=== PATIENT | male | born 1995 | race Caucasian/White ===

== ENCOUNTER 2017-06-24 10:06 | Outpatient (CLI) | payer OTHER ==
--- NOTE | 2017-06-24 15:16 | Diagnostic Imaging Report ---
MISSY PARKS (PHLEBOTOMY DIRECTOR) - OP [facility] [id number] [facility].[address] [id number] Report Submission Date: Jun 24, 2017 10:32:27 AM CDT Patient Study Name: MINDY SALINAS Date: Jun 24, 2017 10:19:55 AM CDT Modality Type: CR Gender: M Description: UPPER EXTREMITY : 89 Institution: [facility] Physician: MISSY PARKS (PHLEBOTOMY DIRECTOR) - OP Examination: Plain film finger History: Hand discomfort Comparison exams: None available Findings: 3 views the 2nd digit demonstrates normal cortical margins. No fracture. No dislocation. Soft tissue swelling with overlying bandage/gauze. Impression: No acute osseous abnormality. No soft tissue foreign body. Electronically signed on Jun 24, 2017 10:32:27 AM CDT by: Tony LEVINE
== END 2017-06-24 10:07 ==
LOC: RAD 10:06
PROVIDERS: ATTEND Nurse Practitioner Family
DX: T14.90XA Injury, unspecified, initial encounter (principal)
CPT/HCPCS: 73140